=== PATIENT | male | born 1975 | race Caucasian/White ===

== ENCOUNTER → 2016-10-26 | Outpatient (CLI) | payer BC ==
[~2016-10-26] MED LIST: BP med; EFFEXOR; FLEXERIL 1010 MG/TAB PO; KLONOPIN 1MG1 MG PO; MOTRIN 600600 MG/TAB PO; NORCO 325 MG-51 TAB PO; PERCOCET 325 MG1 TA2 PO; PRILOSEC40 MG PO; ZOLOFT 100MG100 MG PO; ZOLOFT 50MG50 MG PO
== END ==
LOC: COL.RAD 11:45
DX: E04.2 Nontoxic multinodular goiter (principal)

== ENCOUNTER → 2017-03-21 | Outpatient (CLI) | payer BC | LOC: COL.RAD 03-19 12:45 | DX: K43.9 Ventral hernia without obstruction or gangrene (principal) ==

== ENCOUNTER → 2017-03-23 | Outpatient (CLI) | payer BC ==
[~2017-03-23] MED LIST changes: +ALA-CORT1% TP; +MOTRIN 800800 MG/TAB PO
== END ==
LOC: BHSO 14:26
DX: F41.1 Generalized anxiety disorder (principal)

== ENCOUNTER 2017-03-24 09:00 | Emergency (ER) | payer BC ==
[~2017-03-24] VITALS: Ht 185.4 cm; Wt 102.3 kg
[~2017-03-24 09:00] MED LIST changes: -ALA-CORT1% TP; -MOTRIN 800800 MG/TAB PO
[2017-03-24 09:03] VITALS: BP 110/74; TEMP 98
[2017-03-24] MEDS ORDERED: MOTRIN 800800 MG/TAB PO (09:37)
[2017-03-24] MEDS ORDERED: ALA-CORT1% TP (09:39)
[2017-03-24 09:49] VITALS: PULSE 68
== END 2017-03-24 09:49 | disposition home or self-care (01) ==
LOC: COL.ER 09:00
DX: K64.5 Perianal venous thrombosis (principal); F32.9 Major depressive disorder, single episode, unspecified; F17.210 Nicotine dependence, cigarettes, uncomplicated

== ENCOUNTER 2017-04-18 07:19 | Day surgery (SDC) | payer BC ==
[~2017-04-18] VITALS: Ht 185.4 cm; Wt 100.4 kg
[~2017-04-18 07:19] MED LIST changes: +ALA-CORT1% TP; +MOTRIN 800800 MG/TAB PO
[2017-04-18] MEDS ORDERED: PRINZIDE 12.5 M1 TA1 PO (07:43)
[2017-04-18] MEDS ORDERED: INDERAL 10MG10 MG PO (07:44)
[2017-04-18] MEDS ORDERED: RISPERDAL 1M1 MG/TAB PO (07:44)
[2017-04-18] MEDS ORDERED: BYSTOLIC20 MG PO (07:44)
[2017-04-18] MEDS ORDERED: CENTRUM MEN'S PO (07:45)
[2017-04-18] MEDS ORDERED: STOOL SOFTENER100 M2 PO (07:45)
[2017-04-18] MEDS ORDERED: TYLENOL 500MG500 MG PO ×2 (07:46→14:43)
[2017-04-18 07:47] VITALS: BP 105/74; PULSE 73; TEMP 97.3
[2017-04-18 14:25] VITALS: BP 93/60; PULSE 72; TEMP 97.8
[2017-04-18 14:40] VITALS: BP 102/62; PULSE 70
[2017-04-18] MEDS ORDERED: ROXICODONE 55 MG/TAB PO (14:41)
[2017-04-18 14:55] VITALS: BP 104/70; PULSE 74
== END 2017-04-18 15:37 | disposition home or self-care (01) ==
LOC: SDCO 07:19
DX: K43.6 Other and unspecified ventral hernia with obstruction, without gangrene (principal); F17.210 Nicotine dependence, cigarettes, uncomplicated; I10 Essential (primary) hypertension; J45.909 Unspecified asthma, uncomplicated; F32.9 Major depressive disorder, single episode, unspecified; F41.9 Anxiety disorder, unspecified
CPT/HCPCS: C1713; C1781; J0690; J1100; J1885; J2250; J2270; J2405; J2704; J2710; J3010; J7120

== ENCOUNTER → 2017-11-07 | Outpatient (CLI) | payer BC ==
[~2017-11-07] MED LIST changes: +BYSTOLIC20 MG PO; +CENTRUM MEN'S PO; +INDERAL 10MG10 MG PO; +PRINZIDE 12.5 M1 TA1 PO; +RISPERDAL 1M1 MG/TAB PO; +ROXICODONE 55 MG/TAB PO; +STOOL SOFTENER100 M2 PO; +TYLENOL 500MG500 MG PO
== END ==
LOC: BHSO 10:35
DX: F31.81 Bipolar II disorder (principal)

== ENCOUNTER → 2018-02-11 | Outpatient (CLI) | payer BC | LOC: BHSO 11:39 | DX: F31.81 Bipolar II disorder (principal) | CPT/HCPCS: G0463 ==

== ENCOUNTER → 2018-06-04 | Outpatient (CLI) | payer BC | LOC: BHSO 09:35 | DX: F31.81 Bipolar II disorder (principal) | CPT/HCPCS: G0463 ==

== ENCOUNTER → 2018-09-06 | Outpatient (CLI) | payer BC | LOC: BHSO 08:26 | DX: F31.81 Bipolar II disorder (principal) | CPT/HCPCS: G0463 ==

== ENCOUNTER → 2018-12-02 | Outpatient (CLI) | payer BC | LOC: BHSO 08:57 | DX: F31.81 Bipolar II disorder (principal) | CPT/HCPCS: G0463 ==

== ENCOUNTER → 2019-06-02 | Outpatient (CLI) | payer BC | LOC: BHSO 10:12 | DX: F41.1 Generalized anxiety disorder (principal) | CPT/HCPCS: G0463 ==

== ENCOUNTER → 2019-12-19 | Outpatient (CLI) | payer BC | LOC: BHSO 11:35 | DX: F31.81 Bipolar II disorder (principal) | CPT/HCPCS: G0463 ==

== ENCOUNTER → 2020-01-09 | Outpatient (CLI) | payer BC | LOC: BHSO 14:33 | DX: F31.81 Bipolar II disorder (principal) | CPT/HCPCS: G0463 ==

== ENCOUNTER → 2020-01-21 | Outpatient (CLI) | payer BC | LOC: BHSO 13:02 | DX: F31.81 Bipolar II disorder (principal) ==

== ENCOUNTER → 2020-01-28 | Outpatient (CLI) | payer BC | LOC: BHSO 14:13 | DX: F31.81 Bipolar II disorder (principal) ==

== ENCOUNTER → 2020-02-06 | Outpatient (CLI) | payer BC | LOC: BHSO 14:55 | DX: F31.81 Bipolar II disorder (principal) ==

== ENCOUNTER → 2020-02-11 | Outpatient (CLI) | payer BC | LOC: BHSO 15:43 | DX: F31.81 Bipolar II disorder (principal) | CPT/HCPCS: G0463 ==

== ENCOUNTER → 2020-02-24 | Outpatient (CLI) | payer BC | LOC: BHSO 13:00 | DX: F31.81 Bipolar II disorder (principal) ==

== ENCOUNTER → 2020-08-26 | Outpatient (CLI) | payer BC | LOC: DIA.ED 06:21 | DX: R73.03 Prediabetes (principal) | CPT/HCPCS: G0108 ==

== ENCOUNTER 2020-09-12 16:56 | Emergency (ER) | payer BC ==
[~2020-09-12] VITALS: Ht 182.9 cm; Wt 104.5 kg
[2020-09-12 17:11] VITALS: TEMP 98.2
[2020-09-12 19:40] LABS: BASO # 0.1 (0.0-0.2); BASO % 0.9 % (0.0-2.0); EOS # 0.1 (0.0-0.7); EOS % 1.3 % (0-4.0); GRAN # 5.3 (1.4-6.5); GRAN % 59.2 % (42.2-75.2); HEMATOCRIT 50.4 % (42.0-52.0); HEMOGLOBIN 16.8 g/dl (13.5-18.0); LYMPH # 2.7 (1.2-3.4); LYMPH % 30.2 % (20.0-51.0); MEAN CELL VOLUME 94 fl (80.0-100.0); MEAN CORPUSCULAR HEMOGLOBIN 31 pg (27.0-31.0); MEAN CORPUSCULAR HGB CONC 33 g/dl (33.0-37.0); MEAN PLATELET VOLUME 10.4 fl (7.4-10.4); MONO # 0.7 (0.1-0.6); MONO % 8.2 % (1.7-9.3); PLATELET COUNT 202 K/mm3 (130-400); RED BLOOD COUNT 5.36 M/mm3 (4.20-5.60); REDCELL DISTRIBUTION WIDTH-CV 13.8 % (11.5-14.5)
[2020-09-12 19:49] LABS: ALANINE AMINOTRANSFERASE 24 U/L (4-49); ALBUMIN 4.5 gm/dL (3.5-5.0); ALKALINE PHOSPHATASE 37 U/L (50-136); ANION GAP 5 mmol/L (7-16); AST,SGOT 20 U/L (15-37); BILIRUBIN,TOTAL 0.6 mg/dL (0.0-1.0); BLOOD UREA NITROGEN 20 mg/dL (9-20); CALCIUM 9.3 mg/dL (8.4-10.2); CARBON DIOXIDE 27 mmol/L (22-30); CHLORIDE 104 mmol/L (98-107); CREATININE, serum 0.73 (0.66-1.25); GLUCOSE 86 mg/dL (74-106); LIPASE 82 U/L (23-300); SODIUM 137 mmol/L (137-145); TOTAL PROTEIN 7.2 gm/dL (6.4-8.2)
[2020-09-12 20:32] LABS: TROPONIN-I < 0.012 ng/mL (0.000-0.035)
[2020-09-12 20:47] LABS: TSH w REFLEX 0.954 uIU/mL (0.465-4.680)
[2020-09-12 21:40] VITALS: BP 130/68; PULSE 80
== END 2020-09-12 21:50 | disposition home or self-care (01) ==
LOC: COL.ER 16:56
PROVIDERS: Emergency Medicine
DX: K64.9 Unspecified hemorrhoids (principal); R00.2 Palpitations; I10 Essential (primary) hypertension; F17.210 Nicotine dependence, cigarettes, uncomplicated; Z79.899 Other long term (current) drug therapy

== ENCOUNTER → 2021-01-24 | Emergency (ER) | payer OTHER ==
[~2021-01-24] VITALS: Ht 185.4 cm; Wt 113.6 kg
[2021-01-24 19:09] LABS: BASO # 0.1 K/mm3 (0.0-0.2); BASO % 0.9 % (0.0-2.0); EOS # 0.1 K/mm3 (0.0-0.7); EOS % 1.8 % (0-4.0); GRAN # 3.2 K/mm3 (1.4-6.5); GRAN % 47.6 % (42.2-75.2); HEMATOCRIT 50.6 % (42.0-52.0); LYMPH # 2.7 K/mm3 (1.2-3.4); LYMPH % 39.6 % (20.0-51.0); MEAN CELL VOLUME 92 fl (80.0-100.0); MEAN CORPUSCULAR HEMOGLOBIN 31 pg (27.0-31.0); MEAN CORPUSCULAR HGB CONC 34 g/dl (33.0-37.0); MEAN PLATELET VOLUME 9.8 fl (7.4-10.4); MONO # 0.6 K/mm3 (0.1-0.6); MONO % 9.4 % (1.7-9.3); PLATELET COUNT 200 K/mm3 (130-400); RED BLOOD COUNT 5.49 M/mm3 (4.20-5.60); REDCELL DISTRIBUTION WIDTH-CV 13.2 % (11.5-14.5)
[2021-01-24 19:28] LABS: ALANINE AMINOTRANSFERASE 29 U/L (0-55); ALBUMIN 4.2 gm/dL (3.5-5.0); ALKALINE PHOSPHATASE 45 U/L (0-750); ANION GAP 9 mmol/L (7-16); AST,SGOT 20 U/L (5-34); BILIRUBIN,TOTAL 0.5 mg/dL (0.2-1.2); BLOOD UREA NITROGEN 15 mg/dL (9-21); CALCIUM 9.6 mg/dL (8.4-10.2); CARBON DIOXIDE 23 mmol/L (22-29); CHLORIDE 107 mmol/L (98-107); CREATININE, serum 1.01 mg/dL (0.72-1.25); GLUCOSE 109 mg/dL (70-99); POTASSIUM 4.1 mmol/L (3.5-4.5); SODIUM 139 mmol/L (136-145); TOTAL PROTEIN 7.1 gm/dL (6.2-8.1)
[2021-01-24 19:39] LABS: TROPONIN-I < 0.010 ng/mL (0.00-0.033)
[2021-01-24 22:18] VITALS: BP 139/89; PULSE 78; TEMP 98.4
== END ==
LOC: COL.ER 18:32
PROVIDERS: Personal Emergency Response Attendant
DX: R07.2 Precordial pain (principal); I10 Essential (primary) hypertension; F32.A Depression, unspecified; F41.9 Anxiety disorder, unspecified; Z79.899 Other long term (current) drug therapy
CPT/HCPCS: J2270; J2405

== ENCOUNTER 2021-04-29 20:20 | Emergency (ER) | payer OTHER ==
[~2021-04-29] VITALS: Ht 185.4 cm; Wt 113.6 kg
[2021-04-29 20:38] VITALS: TEMP 98.2
[2021-04-29] MEDS ORDERED: ASPERCREME1 EACH TP (21:43)
[2021-04-29 22:06] VITALS: BP 186/96; PULSE 88
[2021-04-30] MEDS ORDERED: PREDNISONE20 MG PO (20:26)
[2021-04-30] MEDS ORDERED: AMOXICILLIN 8751 TAB PO (20:26)
[2021-04-30] MEDS ORDERED: ATIVAN 0.50.5 MG/TAB PO (20:27)
[2021-04-30] MEDS ORDERED: ALTACE 10MG TAB10 MG PO (20:27)
[2021-04-30] MEDS ORDERED: VRAYLAR3 MG PO (20:27)
[2021-04-30] MEDS ORDERED: COREG 25MG25 MG/TAB PO (20:28)
[2021-04-30] MEDS ORDERED: LAMICTAL 100MG100 MG PO (20:28)
[2021-04-30] MEDS ORDERED: DESYREL 100MG100 MG PO (20:29)
[2021-04-30] MEDS ORDERED: VIIBRYD40 MG PO (20:29)
[2021-04-30] MEDS ORDERED: NORCO 325 MG-51 TAB PO (21:02)
[2021-04-30] MEDS ORDERED: PROAIR HFA0.09 MG/AC IH (21:02)
== END 2021-04-29 22:06 | disposition home or self-care (01) ==
LOC: COL.ER 20:20
DX: R07.81 Pleurodynia (principal); R05.9 Cough, unspecified; F41.9 Anxiety disorder, unspecified; F32.A Depression, unspecified; Z20.822 Contact with and (suspected) exposure to COVID-19; Z79.899 Other long term (current) drug therapy

== ENCOUNTER 2021-04-30 19:38 | Emergency (ER) | payer OTHER ==
[~2021-04-30] VITALS: Ht 182.9 cm; Wt 118.2 kg
[~2021-04-30 19:38] MED LIST changes: +ASPERCREME1 EACH TP
[2021-04-30 19:56] VITALS: TEMP 98
[2021-04-30] MEDS ORDERED: PREDNISONE20 MG PO (20:26)
[2021-04-30] MEDS ORDERED: AMOXICILLIN 8751 TAB PO (20:26)
[2021-04-30] MEDS ORDERED: VRAYLAR3 MG PO (20:27)
[2021-04-30] MEDS ORDERED: ALTACE 10MG TAB10 MG PO (20:27)
[2021-04-30] MEDS ORDERED: ATIVAN 0.50.5 MG/TAB PO (20:27)
[2021-04-30] MEDS ORDERED: COREG 25MG25 MG/TAB PO (20:28)
[2021-04-30] MEDS ORDERED: LAMICTAL 100MG100 MG PO (20:28)
[2021-04-30] MEDS ORDERED: VIIBRYD40 MG PO (20:29)
[2021-04-30] MEDS ORDERED: DESYREL 100MG100 MG PO (20:29)
[2021-04-30] MEDS ORDERED: NORCO 325 MG-51 TAB PO (21:02)
[2021-04-30] MEDS ORDERED: PROAIR HFA0.09 MG/AC IH (21:02)
[2021-04-30 21:18] VITALS: BP 133/99; PULSE 85
== END 2021-04-30 21:21 | disposition home or self-care (01) ==
LOC: COL.ER 19:38
DX: J45.901 Unspecified asthma with (acute) exacerbation (principal); R07.81 Pleurodynia; F41.9 Anxiety disorder, unspecified; F32.A Depression, unspecified; Z79.899 Other long term (current) drug therapy
CPT/HCPCS: J7512

== ENCOUNTER 2021-05-08 18:45 | Emergency (ER) | payer OTHER ==
[~2021-05-08] VITALS: Ht 185.4 cm; Wt 115.9 kg
[~2021-05-08 18:45] MED LIST changes: +ALTACE 10MG TAB10 MG PO; +AMOXICILLIN 8751 TAB PO; +ATIVAN 0.50.5 MG/TAB PO; +COREG 25MG25 MG/TAB PO; +DESYREL 100MG100 MG PO; +LAMICTAL 100MG100 MG PO; +PREDNISONE20 MG PO; +PROAIR HFA0.09 MG/AC IH; +VIIBRYD40 MG PO; +VRAYLAR3 MG PO
[2021-05-08 19:35] LABS: HEMOGLOBIN 15.9 g/dl (13.5-18.0); MEAN CELL VOLUME 95 fl (80.0-100.0); MEAN CORPUSCULAR HEMOGLOBIN 31 pg (27-31); MEAN CORPUSCULAR HGB CONC 32 g/dl (33.0-37.0); MEAN PLATELET VOLUME 9.5 fl (7.4-10.4); PLATELET COUNT 213 K/mm3 (130-400); RED BLOOD COUNT 5.18 M/mm3 (4.20-5.60); REDCELL DISTRIBUTION WIDTH-CV 13.4 % (11.5-14.5)
[2021-05-08 19:39] LABS: PROTHROMBIN TIME 10.8 SECONDS (9.7-12.8)
[2021-05-08 19:46] LABS: ALBUMIN 3.9 gm/dL (3.5-5.0); BILIRUBIN,TOTAL 0.8 mg/dL (0.2-1.2); CALCIUM 8.7 mg/dL (8.4-10.2); CREATININE, serum 1.36 mg/dL (0.72-1.25); POTASSIUM 4.1 mmol/L (3.5-4.5); TOTAL PROTEIN 6.9 gm/dL (6.2-8.1)
[2021-05-08 19:47] LABS: BAND 4 % (0-10); EOSINOPHIL 5 % (0-4); LYMPHOCYTE 35 % (20.0-51.0); NEUTROPHILS 46 % (42.0-75.2); PLATELET ESTIMATE NORMAL (NORMAL)
[2021-05-08] MEDS ORDERED: LIPITOR 80MG80 MG PO (22:04)
[2021-05-08 22:25] VITALS: BP 136/64; PULSE 88; TEMP 97.5
== END 2021-05-08 22:25 | disposition home or self-care (01) ==
LOC: COL.ER 18:45
PROVIDERS: Emergency Medicine
DX: S30.1XXA Contusion of abdominal wall, initial encounter (principal); I77.79 Dissection of other specified artery; I10 Essential (primary) hypertension; Z79.01 Long term (current) use of anticoagulants; Z79.899 Other long term (current) drug therapy; X58.XXXA Exposure to other specified factors, initial encounter
CPT/HCPCS: Q9967

== ENCOUNTER 2024-02-17 09:16 | Emergency (ER) | payer OTHER ==
[~2024-02-17] VITALS: Ht 182.9 cm; Wt 111.4 kg
[~2024-02-17 09:16] MED LIST changes: +CIPRO 500MG TA500 MG PO; +LIPITOR 80MG80 MG PO
[2024-02-17 09:23] VITALS: TEMP 98.1
[2024-02-17 10:20] VITALS: BP 120/80; PULSE 76
== END 2024-02-17 10:21 | disposition home or self-care (01) ==
LOC: COL.ER 09:16
DX: K64.9 Unspecified hemorrhoids (principal)